=== PATIENT | male | born 1950 | race Caucasian/White ===

== ENCOUNTER → 2017-07-26 15:21 | Outpatient (CLI) | payer MEDICARE, OTHER ==
[2011-10-27 09:14] VITALS: BMI 30.9
== END | disposition home or self-care (01) ==
LOC: D.RAD 15:21
DX: M54.2 Cervicalgia (principal)

== ENCOUNTER → 2018-01-24 11:50 | Outpatient (CLI) | payer MEDICARE, OTHER ==
[2011-10-27 09:14] VITALS: BMI 30.9
== END | disposition home or self-care (01) ==
LOC: D.MRI 11:50
DX: M54.2 Cervicalgia (principal)